=== PATIENT | female | born 1985 | race Caucasian/White ===

== ENCOUNTER 2023-08-28 08:00 | Outpatient (CLI) | payer OTHER | END 2023-08-28 23:59 | disposition home or self-care (01) | LOC: LAB.WCP 08:00 | PROVIDERS: ATTEND Physician Assistant Medical | DX: J02.9 Acute pharyngitis, unspecified (principal) | CPT/HCPCS: 87070; 87077 ==

== ENCOUNTER 2023-10-03 12:11 | Emergency (ER) | payer OTHER ==
--- NOTE | 2023-10-03 12:31 | ED Physician Documentation ---
PD HPI ABD PAIN - Stated complaint Stated Complaint: LT LOWER SIDE PX - Chief complaint Chief Complaint: Abd Pain - History obtained from History obtained from: Patient - History of Present Illness Timing - onset: How many hours ago (few), Today Timing - duration: Hours Timing - details: Abrupt onset, Still present Quality: Cramping, Aching, Pain Location: LLQ Radiation: Left flank Associated symptoms: Nausea, Vomiting, Dysuria. No: Fever, Diarrhea, Hematuria, Vaginal bleeding, Vaginal dc Similar symptoms before: Diagnosis (similar to prior kidney stones.) PD PAST MEDICAL HISTORY - Past Medical History Past Medical History: Yes Cardiovascular: Hypertension : Kidney stones Psych: Depression, Anxiety, Other Other Past Medical History: agorphobia - Past Surgical History Past Surgical History: Yes General: Appendectomy - Present Medications Home Medications: Ambulatory Orders Medication Instructions Recorded Confirmed HYDROcod/ACETAM 5/325 [[place] 5/325] 1 ea PO Q6H PRN #10 tablet 10/03/23 Meloxicam [Mobic] 7.5 mg PO BID 10 Days #20 tablet 10/03/23 Ondansetron Odt [Zofran] 4 mg TL Q6H PRN #10 tablet 10/03/23 Tamsulosin [Flomax] 0.4 mg PO DAILY #5 cap 10/03/23 - Allergies Allergies/Adverse Reactions: Allergies Allergy/AdvReac Type Severity Reaction Status Date / Time Sulfa (Sulfonamide Allergy Anaphylaxis Verified 10/03/23 12:58 Antibiotics) - Social History Does the pt smoke?: No Smoking Status: Never smoker Does the pt drink ETOH?: Yes Does the pt have substance abuse?: No - Immunizations Immunizations are current?: Yes PD ED PE NORMAL - Vitals Vital signs reviewed: Yes - General General: Alert and oriented X 3, Well developed/nourished, Other (appears in considerable pain left abd. ) - Abdomen Abdomen: Normal bowel sounds, Soft, Non distended, Other (some tender left lower abd but not to the degree of the pain she has. Also left CVA very tender in contrast. ) Results - Vitals Vitals: Vital Signs - 24 hr 10/03/23 10/03/23 10/03/23 12:19 14:23 15:49 Temperature 36.5 C Heart Rate 84 80 76 Respiratory 16 16 14 Rate Blood Pressure 162/115 H 133/74 H O2 Saturation 100 100 100 Oxygen O2 Source Room air - Labs Labs: Laboratory Tests 10/03/23 10/03/23 10/03/23 12:33 12:33 14:00 WBC 8.8 RBC 4.43 Hgb 12.9 Hct 40.1 MCV 90.5 MCH 29.1 MCHC 32.2 RDW 14.6 Plt Count 303 MPV 9.4 Neut # (Auto) 5.6 Lymph # (Auto) 2.2 [place] # (Auto) 0.7 Eos # (Auto) 0.2 Baso # (Auto) 0.1 Absolute Nucleated RBC 0.00 Nucleated RBC % 0.0 Sodium 135 Potassium 4.1 Chloride 102 Carbon Dioxide 24 Anion Gap 9.0 BUN 15 Creatinine 0.7 Estimated GFR (MDRD) 93 Glucose 85 Calcium 10.2 Total Bilirubin 0.3 AST 20 ALT 21 Alkaline Phosphatase 68 Total Protein 8.0 Albumin 4.4 Globulin 3.6 Albumin/Globulin Ratio 1.2 Lipase 45 Urine Color YELLOW Urine Clarity HAZY Urine pH 6.5 Ur Specific [place] 1.020 Urine Protein TRACE Urine Glucose (UA) NEGATIVE Urine Ketones NEGATIVE Urine Occult Blood LARGE H Urine Nitrite NEGATIVE Urine Bilirubin NEGATIVE Urine Urobilinogen 0.2 (NORMAL) Ur Leukocyte Esterase NEGATIVE Urine RBC TNTC H Urine WBC 0-3 Ur Squamous Epith Cells RARE Squamous Urine Bacteria Rare Ur Microscopic Review INDICATED Urine Culture Comments NOT INDICATED Urine HCG, Qual 10/03/23 14:00 WBC RBC Hgb Hct MCV MCH MCHC RDW Plt Count MPV Neut # (Auto) Lymph # (Auto) [place] # (Auto) Eos # (Auto) Baso # (Auto) Absolute Nucleated RBC Nucleated RBC % Sodium Potassium Chloride Carbon Dioxide Anion Gap BUN Creatinine Estimated GFR (MDRD) Glucose Calcium Total Bilirubin AST ALT Alkaline Phosphatase Total Protein Albumin Globulin Albumin/Globulin Ratio Lipase Urine Color Urine Clarity Urine pH Ur Specific [place] Urine Protein Urine Glucose (UA) Urine Ketones Urine Occult Blood Urine Nitrite Urine Bilirubin Urine Urobilinogen Ur Leukocyte Esterase Urine RBC Urine WBC Ur Squamous Epith Cells Urine Bacteria Ur Microscopic Review Urine Culture Comments Urine HCG, Qual NEGATIVE - Rads (name of study) abd/pelvic CT Relevant Findings:: Prelim report reviewed, EMP independent interpretation of test (large left ovarian cyst 9 cm. 3 cm right one. no ureteral stones. 6 mm kidney stone in pelvic area. no hydro. multiple small renal stones bilaterally. ) PD Medical Decision Making - ED course Complexity details: reviewed results (SHe had pain type and location very c/w kidney stone. Had felt improved with IV fluids and meds, and got CT scan. No noted ureteral stone. I brelierve she had a urteral stone and passed prior to the CT. Still renal stone that looks close to pelvic area of kidney, ? intervention on it pre-emptive.), considered differential (The patient had abrupt onset of left flank pain which is moved somewhat to the left front as well. The pain is unrelieved by ibuprofen and is unaffected by change in position breathing or palpation. She states similar to kidney stone she had had over 5 years ago. She has had to have stents prior), d/w patient Reviewed Lab Results: also with large cyst found on CT, not likely related to current pain episode as pain mostly gone and cyst still present. However it is a large one. I talked with Dr. Pathak, DIRECTOR [place] geriatric personal care aide, who said they can see pt in office and we did not need to do US today on it. Departure - Departure Disposition: 01 Home, Self Care Clinical Impression: Left flank pain, Ovarian cyst, Renal stones Condition: Stable Record reviewed to determine appropriate education?: Yes Follow-Up: Dori Pathak MD [Provider Admit Priv/Credential] - Shashank Keyes MD [Provider Admit Priv/Credential] - Prescriptions: Tamsulosin [Flomax] 0.4 mg PO DAILY #5 cap Meloxicam [Mobic] 7.5 mg PO BID 10 Days #20 tablet HYDROcod/ACETAM 5/325 [[place] 5/325] 1 ea PO Q6H PRN #10 tablet PRN Reason: Pain Ondansetron Odt [Zofran] 4 mg TL Q6H PRN #10 tablet PRN Reason: Nausea / Vomiting Comments: You do have blood in your urine which would go along with the idea of the sound like a kidney stone. Your CT scan did not show any stones passing in the ureter but I believe that was the cause of your pain and it likely passed prior to the CT scan after your gotten medication. The pain character and location certainly sound like kidney stone. On the CT scan, you do have a kidney stone in the left kidney that moderate- sized about 6 to 7 mm and looks near to the collection system or outlet flow of the urine. Is not blocking the passageway currently. I would suggest following up with urology though for an opinion on whether that would be worth preemptively doing any lithotripsy or such or given the smaller passable size to just let it be. I provided the phone number for urology to call for follow-up. Given that you presumably passed a stone, there is still can be some cramps and pains related to inflammation and spasming of the ureter over the next couple of days. Commonly will go with a anti-inflammatories, stay well-hydrated, and a medicine to reduce ureteral spasms for 2 or 3 more days just to preempt secondary symptoms of that. To that add pain medicine if needed. Also a finding on your CT scan was a large ovarian cyst on the left measuring 9 cm and a smaller one on the right measuring about 3 cm. I talked with our on- call gynecology who said we did need to get any further imaging per se today but they would follow-up in the office with you in the short-term to discuss options about it and any further testing. They can get an ultrasound outpatient if desired. I sent your prescriptions to your preferred pharmacy. Return if repeated pains or problems. Forms: PCP List Discharge Date/Time: 10/03/23 15:55
[2023-10-03 12:32] VITALS: O2SAT 100
[2023-10-03 12:39] LABS: BASOPHILS # (AUTO) 0.1 10^3/uL (0.0-0.1); BASOPHILS % (AUTO) 0.8 %; EOSINOPHILS # (AUTO) 0.2 10^3/uL (0.0-0.7); EOSINOPHILS % (AUTO) 1.9 %; HCT - HEMATOCRIT 40.1 % (37.0-47.0); HGB - HEMOGLOBIN 12.9 g/dL (12.0-16.0); LYMPHOCYTES # (AUTO) 2.2 10^3/uL (1.5-3.5); LYMPHOCYTES % (AUTO) 24.7 %; MEAN CORPUSCULAR HEMOGLOBIN 29.1 pg (27.0-31.0); MEAN CORPUSCULAR HGB CONC 32.2 g/dL (32.0-36.0); MEAN CORPUSCULAR VOLUME 90.5 fL (81.0-99.0); MEAN PLATELET VOLUME 9.4 fL (7.9-10.8); MONOCYTES # (AUTO) 0.7 10^3/uL (0.0-1.0); MONOCYTES % (AUTO) 8.3 %; NEUTROPHILS # (AUTO) 5.6 10^3/uL (1.5-6.6); NEUTROPHILS % (AUTO) 64.1 %; PLT - PLATELET COUNT 303 10^3/uL (130-450); RED BLOOD COUNT 4.43 10^6/uL (4.20-5.40); RED CELL DISTRIBUTION WIDTH 14.6 % (12.0-15.0); WHITE BLOOD COUNT 8.8 x10^3/uL (4.8-10.8)
[2023-10-03 12:54] LABS: ALBUMIN 4.4 g/dL (3.2-5.5); ALBUMIN/GLOBULIN RATIO 1.2 (1.0-2.2); BILIRUBIN,TOTAL 0.3 mg/dL (0.2-1.0); CALCIUM 10.2 mg/dL (8.5-10.3); CREATININE 0.7 mg/dL (0.6-1.3); POTASSIUM 4.1 mmol/L (3.5-4.5)
[2023-10-03] MEDS: SODIUM CHLORIDE 0.9% 1,000 ML IV STA (13:00)
[2023-10-03] MEDS: KETOROLAC 15 MG/ML VIAL IVP STA (13:00)
[2023-10-03] MEDS: ONDANSETRON 4 MG/2 ML VIAL IVP STA (13:00)
[2023-10-03] MEDS: HYDROmorphone 1 MG/ML CARPUJECT IVP STA ×2 (13:05→14:20)
[2023-10-03] MEDS ORDERED: iohexoL-300 100 ML VIAL ONE (13:12)
[2023-10-03] MEDS: ONDANSETRON ODT 4 MG TABLET TL STA (13:51)
--- NOTE | 2023-10-03 14:22 | CT Report ---
PROCEDURE: Abdomen/Pelvis W INDICATIONS: left flank to abd pain overnight; h/o stones CONTRAST: 100ml omni 300 TECHNIQUE: After the administration of intravenous contrast, a CT scan of the abdomen and pelvis was performed. Images were recorded and evaluated at appropriate window settings. Reformats: coronal and sagittal. F or radiation dose reduction, the following was used: automated exposure control, adjustment of mA and /or kV according to patient size. COMPARISON: None. FINDINGS: Image quality: Diagnostic. Lower chest: Unremarkable. Liver: No solid mass. Gallbladder: No radiopaque stones or wall thickening. Biliary tree: No intrahepatic or extrahepatic dilation, accounting for age. Spleen: No splenomegaly. Pancreas: No pancreatic ductal dilation. Adrenals: No adrenal nodule. Kidneys and ureters: No hydronephrosis. No renal cystic lesion which requires follow up. No solid mas s. 7 mm calculus at the interpolar region of the left kidney (775 Hounsfield units). Additional small er nonobstructing bilateral renal calculi. No hydronephrosis or hydroureter. Stomach, bowel and peritoneum: No gastric or small bowel dilation. No abnormal wall thickening. No pa thologic free fluid. Colon is nondistended. Lymph nodes: No central or retroperitoneal adenopathy. Vessels: No infrarenal aortic aneurysm. Patent portal vein. PELVIS Reproductive organs: Ovoid hypoattenuating lesion in the anterior central pelvis measuring 9.3 x 7.7 x 7.8 cm. This lesion obvious thoracic and the right adnexa, abutting the right ovary. There is a 3.6 cm left ovarian cyst.. Bladder: No abnormal wall thickening, accounting for underdistention. Pelvic lymph nodes: No pelvic adenopathy by size criteria. Bones: No aggressive osseous abnormality. Other: No significant ventral or inguinal hernia. IMPRESSION: 1.Bilateral nonobstructing renal calculi, including a 7 mm calculus in the left kidney. No hydronephr osis or hydroureter. No ureteral calculus identified. 2.Large 9.3 cm cystic lesion is seen in the midline lower abdomen that appears to be arising from the right adnexa. Recommend pelvic ultrasound for further evaluation. 3.Left ovarian 3.6 cm cyst. Reviewed by: Lester Ellington MD on 10/03/2023 2:21 PM PDT Approved by: Lester Ellington MD on 10/03/2023 2:21 PM PDT Station ID: [id number]
[2023-10-03] MEDS: iohexoL-300 100 ML VIAL IVP ONE (15:01)
[2023-10-03 15:28] LABS: BILIRUBIN,URINE NEGATIVE (NEGATIVE); GLUCOSE, URINE (UA) NEGATIVE (NEGATIVE); KETONES,URINE (UA) NEGATIVE (NEGATIVE); LEUKOCYTE ESTERASE, URINE NEGATIVE (NEGATIVE); NITRITE,URINE NEGATIVE (NEGATIVE); OCCULT BLOOD,URINE LARGE (NEGATIVE); PH,URINE 6.5 PH (5.0-7.5); PROTEIN,URINE TRACE mg/dL (NEGATIVE); UROBILINOGEN,URINE 0.2 (NORMAL) E.U./dL (NORMAL)
[2023-10-03 15:30] LABS: CLARITY,URINE HAZY (CLEAR); HCG UR QUAL NEGATIVE
[2023-10-03 15:39] LABS: BACTERIA,URINE Rare /HPF (None Seen); RBC,URINE TNTC /HPF (0-5); SQUAMOUS EPITHELIAL CELL,UR RARE Squamous (<= Few); WBC,URINE 0-3 /HPF (0-5)
[2023-10-03] MEDS: TAMSULOSIN 0.4 MG CAPSULE PO STA (15:40)
[2023-10-03 15:56] VITALS: BP 133/74
== END 2023-10-03 15:55 | disposition home or self-care (01) ==
LOC: ED 12:11
DX: N20.0 Calculus of kidney (principal); N83.202 Unspecified ovarian cyst, left side; Z32.02 Encounter for pregnancy test, result negative
CPT/HCPCS: 36415; 74177; 80053; 81001; 81025; 83690; 85025; 96361; 96374; 96375; 96376; 99284; A9270; J1170; Q0162; Q9967; 81003; 87086

== ENCOUNTER 2023-10-11 11:40 | Day surgery (SDC) | payer OTHER ==
[2023-10-11 12:29] LABS: BILIRUBIN,URINE NEGATIVE (NEGATIVE); GLUCOSE, URINE (UA) NEGATIVE (NEGATIVE); KETONES,URINE (UA) 15 mg/dL (NEGATIVE); LEUKOCYTE ESTERASE, URINE NEGATIVE (NEGATIVE); NITRITE,URINE NEGATIVE (NEGATIVE); OCCULT BLOOD,URINE MODERATE (NEGATIVE); PROTEIN,URINE TRACE mg/dL (NEGATIVE); UROBILINOGEN,URINE 0.2 (NORMAL) E.U./dL (NORMAL)
[2023-10-11 12:33] LABS: CLARITY,URINE CLEAR (CLEAR); HCG UR QUAL NEGATIVE
[2023-10-11 12:36] LABS: BACTERIA,URINE Few /HPF (None Seen); SQUAMOUS EPITHELIAL CELL,UR FEW Squamous (<= Few); WBC,URINE 0-3 /HPF (0-5)
--- NOTE | 2023-10-11 12:42 | ED Physician Documentation ---
History of Present Illness - Stated complaint Stated Complaint: LOWER BACK PX, - Chief complaint Chief Complaint: Abd Pain - History obtained from History obtained from: Patient - History of Present Illness Timing: Today Pain level max: 9 Pain level now: 9 - Additonal information Additional information: Patient is a 38-year-old female who presents to the emergency department complaint of left-sided flank pain. She states that she was seen here a week ago for "kidney stones". She states that her pain mostly went away, but started having sharp left-sided flank pain again yesterday, worsening into today. Took Vicodin without relief. She states that she has had to have a kidney stone removed in the past about 6 years ago. No fevers. No chills. States that there is a pink tinge to her urine. No vomiting. Denies any possibility of . Nothing makes it better or worse. Not having any pelvic pain or abdominal pain. Review of Systems Constitutional: denies: Fever, Chills Respiratory: denies: Cough : denies: Now [facility] PD PAST MEDICAL HISTORY - Past Medical History Past Medical History: Yes Cardiovascular: Hypertension : Kidney stones Psych: Depression, Anxiety, Other - Past Surgical History Past Surgical History: Yes General: Appendectomy - Present Medications Home Medications: Ambulatory Orders Medication Instructions Recorded Confirmed HYDROcod/ACETAM 5/325 [[place] 5/325] 1 ea PO Q6H PRN #10 tablet 10/03/23 Meloxicam [Mobic] 7.5 mg PO BID 10 Days #20 tablet 10/03/23 Ondansetron Odt [Zofran] 4 mg TL Q6H PRN #10 tablet 10/03/23 Tamsulosin [Flomax] 0.4 mg PO DAILY #5 cap 10/03/23 - Allergies Allergies/Adverse Reactions: Allergies Allergy/AdvReac Type Severity Reaction Status Date / Time Sulfa (Sulfonamide Allergy Anaphylaxis Verified 10/11/23 12:12 Antibiotics) - Social History Does the pt smoke?: No Smoking Status: Never smoker Does the pt drink ETOH?: Yes Does the pt have substance abuse?: No - Immunizations Immunizations are current?: Yes - POLST Patient has POLST: No PD ED PE NORMAL - Vitals Vital signs reviewed: Yes - General General: Alert and oriented X 3, Other (Appears in pain) - HEENT HEENT: PERRL, Moist mucous membranes - Neck Neck: Supple, no meningeal sign - Cardiac Cardiac: RRR, Strong equal pulses - Respiratory Respiratory: No respiratory distress, Clear bilaterally - Abdomen Abdomen: Soft, Non tender, Non distended - Back Back: No spinal TTP, Other (Left CVA tenderness) - Derm Derm: Warm and dry - Extremities Extremities: No edema, No calf tenderness / cord - Neuro Neuro: Alert and oriented X 3 - Psych Psych: Normal mood, Normal affect Results - Vitals Vitals: Vital Signs - 24 hr 10/11/23 10/11/23 10/11/23 12:13 13:36 14:00 Temperature 36.5 C Heart Rate 110 H 94 88 Respiratory 16 18 17 Rate Blood Pressure 150/89 H 194/92 H 133/88 H O2 Saturation 99 98 98 Oxygen O2 Source Room air - Labs Labs: Laboratory Tests 10/11/23 10/11/23 10/11/23 12:23 12:35 12:35 WBC 8.6 RBC 4.12 L Hgb 12.3 Hct 37.6 MCV 91.3 MCH 29.9 MCHC 32.7 RDW 14.4 Plt Count 279 MPV 9.6 Neut # (Auto) 5.7 Lymph # (Auto) 1.9 [place] # (Auto) 0.7 Eos # (Auto) 0.2 Baso # (Auto) 0.1 Absolute Nucleated RBC 0.00 Nucleated RBC % 0.0 Sodium 137 Potassium 3.7 Chloride 104 Carbon Dioxide 24 Anion Gap 9.0 BUN 17 Creatinine 0.6 Estimated GFR (MDRD) 111 Glucose 90 Calcium 9.4 Total Bilirubin 0.4 AST 22 ALT 20 Alkaline Phosphatase 66 Total Protein 7.7 Albumin 4.2 Globulin 3.5 Albumin/Globulin Ratio 1.2 Lipase 42 Urine Color YELLOW Urine Clarity CLEAR Urine pH 6.0 Ur Specific [place] 1.025 Urine Protein TRACE Urine Glucose (UA) NEGATIVE Urine Ketones 15 H Urine Occult Blood MODERATE H Urine Nitrite NEGATIVE Urine Bilirubin NEGATIVE Urine Urobilinogen 0.2 (NORMAL) Ur Leukocyte Esterase NEGATIVE Urine RBC 6-10 H Urine WBC 0-3 Ur Squamous Epith Cells FEW Squamous Urine Bacteria Few Ur Microscopic Review INDICATED Urine Culture Comments NOT INDICATED Urine HCG, Qual NEGATIVE - Rads (name of study) CT abdomen pelvis Relevant Findings:: Final report received, See rad report PD Medical Decision Making - ED course Complexity details: reviewed results, re-evaluated patient, considered differential, d/w patient ED course: 38-year-old female with a left 8 by 4 x 3 mm proximal left ureteral stone. Given Toradol, IV lidocaine, IV Dilaudid. Pain remains an 8-9 out of 10. Therefore I spoke with urology, Dr. Keyes, he will take the patient to the OR for stent placement. This document was made in part using voice recognition software. While efforts are made to proofread this document, sound alike and grammatical errors may occur. Departure - Departure Disposition: ED Place in Observation Clinical Impression: Ureteral calculus, left Condition: Stable Forms: PCP List
[2023-10-11 12:45] LABS: BASOPHILS # (AUTO) 0.1 10^3/uL (0.0-0.1); EOSINOPHILS # (AUTO) 0.2 10^3/uL (0.0-0.7); EOSINOPHILS % (AUTO) 2.7 %; HCT - HEMATOCRIT 37.6 % (37.0-47.0); HGB - HEMOGLOBIN 12.3 g/dL (12.0-16.0); LYMPHOCYTES # (AUTO) 1.9 10^3/uL (1.5-3.5); LYMPHOCYTES % (AUTO) 21.5 %; MEAN CORPUSCULAR HEMOGLOBIN 29.9 pg (27.0-31.0); MEAN CORPUSCULAR HGB CONC 32.7 g/dL (32.0-36.0); MEAN CORPUSCULAR VOLUME 91.3 fL (81.0-99.0); MEAN PLATELET VOLUME 9.6 fL (7.9-10.8); MONOCYTES # (AUTO) 0.7 10^3/uL (0.0-1.0); MONOCYTES % (AUTO) 8.1 %; NEUTROPHILS # (AUTO) 5.7 10^3/uL (1.5-6.6); NEUTROPHILS % (AUTO) 66.5 %; PLT - PLATELET COUNT 279 10^3/uL (130-450); RED BLOOD COUNT 4.12 10^6/uL (4.20-5.40); RED CELL DISTRIBUTION WIDTH 14.4 % (12.0-15.0); WHITE BLOOD COUNT 8.6 x10^3/uL (4.8-10.8)
[2023-10-11] MEDS ORDERED: LIDOCAINE-MPF 2% 5 ML VIAL ONE (12:51)
[2023-10-11] MEDS: KETOROLAC 30 MG/ML VIAL IVP STA (12:58)
[2023-10-11] MEDS: LIDOCAINE-MPF 2% 7 ML in SODIUM CHLORIDE 0.9% 50 ML IV STA (13:06)
[2023-10-11 13:07] LABS: ALBUMIN 4.2 g/dL (3.2-5.5); ALBUMIN/GLOBULIN RATIO 1.2 (1.0-2.2); BILIRUBIN,TOTAL 0.4 mg/dL (0.2-1.0); CALCIUM 9.4 mg/dL (8.5-10.3); CREATININE 0.6 mg/dL (0.6-1.3); POTASSIUM 3.7 mmol/L (3.5-4.5); TOTAL PROTEIN 7.7 g/dL (6.4-8.9)
[2023-10-11] MEDS: ONDANSETRON 4 MG/2 ML VIAL IVP STA (13:21)
[2023-10-11] MEDS: HYDROmorphone 1 MG/ML CARPUJECT IVP STA ×2 (13:33→15:12)
--- NOTE | 2023-10-11 14:05 | CT Report ---
PROCEDURE: Abdomen/Pelvis WO INDICATIONS: L flank pain, h/o renal stones TECHNIQUE: A CT scan of the abdomen and pelvis was performed without the use of intravenous contrast. Images we re recorded and evaluated at appropriate window settings. Reformats: coronal and sagittal. For radiat ion dose reduction, the following was used: automated exposure control, adjustment of mA and/or kV ac cording to patient size. COMPARISON: CT abdomen and pelvis with contrast dated 02/03/2024. FINDINGS: Image quality: Diagnostic. Lower chest: Unremarkable. Liver: No contour-deforming mass. Gallbladder: No radiopaque stones or wall thickening. Biliary tree: No intrahepatic or extrahepatic dilation, accounting for age. Spleen: No splenomegaly. Pancreas: No pancreatic ductal dilation. Adrenals: No adrenal nodule. Right Kidney: Subtle pancreatic calcifications and tiny stones are consistent with renal tubular acid osis. No hydronephrosis. Right Ureter: Unremarkable Left Kidney: Mild to moderate hydronephrosis. A previous pelvic stone has migrated down into the prox imal ureter. There are subtle paintbrush calcifications and there is a tiny stone. Findings are consi stent with renal tubular acidosis. Left Ureter: There is an 8 x 3 x 4 mm stone in the proximal left ureter at the level of L3-L4 which o bstructs the left ureter and results in mild to moderate left hydronephrosis. This stone was previous ly in the renal pelvis. Stomach, bowel and peritoneum: No gastric or small bowel dilation. No abnormal wall thickening. No pa thologic free fluid. Lymph nodes: No central or retroperitoneal adenopathy. Vessels: No infrarenal aortic aneurysm. Reproductive organs: Again noted is a 9.2 cm cystic lesion of the right adnexa as well as a 3.7 cm le jonathan of the left adnexa. Bladder: Bladder wall thickness is normal, accounting for underdistention. No calcified bladder stone s. Pelvic lymph nodes: No adenopathy by size criteria. Bones: No aggressive osseous abnormality. Other: No significant ventral or inguinal hernia. IMPRESSION: 1. Findings are consistent with renal tubular acidosis. There are bilateral pain brush calcifications and tiny stones. 2. A stone previously present in the left renal pelvis has migrated to the proximal ureter. It measur es 8 x 3 x 4 mm and results in mild to moderate left hydronephrosis. 3. 9.3 cm cystic lesion of the right adnexa. Also present is a 3.7 cm left adnexal cystic lesion. Recommend nonemergent [facility] MEDICINE SPECIALIST consultation for management of the right ovarian cystic lesion Reviewed by: Surinder Polo MD on 10/11/2023 2:04 PM PDT Approved by: Surinder Polo MD on 10/11/2023 2:04 PM PDT Station ID: [id number]
--- NOTE | 2023-10-11 14:56 | CONSULTATION NOTE ---
Referring Provider Name of Referring Provider:: Dr Lynn Consult Date: 10/11/23 Chief Complaint - Chief Complaint Chief Complaint: Left ureteral stone History of Present Illness - Admitted From Admitted From:: ER - History Obtained From Records Reviewed: ER History obtained from: patient Exam Limitations: none - History of Present Illness HPI Comment/Other: Isela is a pleasant 38-year-old woman with history of kidney stones requiring intervention in the past. She had ureteral stones during and had to be monitored conservatively. She comes today with intractable nausea vomiting left flank pain which is resistant to multiple rounds of narcotic pain medications. She was found to have a 5 mm proximal left ureteral stone with ipsilateral hydroureteronephrosis. She is mildly uncomfortable and asking for pain medications. Her white count is normal her creatinine is normal. She has no fever she has normal vitals. History - Past Medical History Cardiovascular: reports: Hypertension : reports: Kidney stones Psych: reports: Depression, Anxiety, Other MRSA Hx?: No - Past Surgical History General: reports: Appendectomy - POLST Patient has POLST: No Meds/Allgy - Home Medications Home Medications: Ambulatory Orders Medication Instructions Recorded Confirmed HYDROcod/ACETAM 5/325 [[place] 5/325] 1 ea PO Q6H PRN #10 tablet 10/03/23 Meloxicam [Mobic] 7.5 mg PO BID 10 Days #20 tablet 10/03/23 Ondansetron Odt [Zofran] 4 mg TL Q6H PRN #10 tablet 10/03/23 Tamsulosin [Flomax] 0.4 mg PO DAILY #5 cap 10/03/23 - Allergies Allergies/Adverse Reactions: Allergies Allergy/AdvReac Type Severity Reaction Status Date / Time Sulfa (Sulfonamide Allergy Anaphylaxis Verified 10/11/23 12:12 Antibiotics) Exam - Vital Signs Vital Signs: Vital Signs x48h Temp Pulse Resp BP Pulse Ox 10/11/23 14:00 88 17 133/88 H 98 10/11/23 13:36 94 18 194/92 H 98 10/11/23 12:13 36.5 C 110 H 16 150/89 H 99 - Physical Exam General Appearance: positive: No acute distress Respiratory: positive: Breath sounds nml Cardiovascular: positive: Regular rate & rhythm Conclusion and Plan - Lab Results Laboratory Results 10/11/23 12:35: Sodium 137, Potassium 3.7, Chloride 104, Carbon Dioxide 24, Anion Gap 9.0, BUN 17, Creatinine 0.6, Estimated GFR (MDRD) 111, Glucose 90, Calcium 9.4, Total Bilirubin 0.4, AST 22, ALT 20, Alkaline Phosphatase 66, Total Protein 7.7, Albumin 4.2, Globulin 3.5, Albumin/Globulin Ratio 1.2, Lipase 42 10/11/23 12:35: WBC 8.6, RBC 4.12 L, Hgb 12.3, Hct 37.6, MCV 91.3, MCH 29.9, MCHC 32.7, RDW 14.4, Plt Count 279, MPV 9.6, Neut # (Auto) 5.7, Lymph # (Auto) 1.9, [place] # (Auto) 0.7, Eos # (Auto) 0.2, Baso # (Auto) 0.1, Absolute Nucleated RBC 0.00, Nucleated RBC % 0.0 10/11/23 12:23: Urine Color YELLOW, Urine Clarity CLEAR, Urine pH 6.0, Ur Specific [place] 1.025, Urine Protein TRACE, Urine Glucose (UA) NEGATIVE, Urine Ketones 15 H, Urine Occult Blood MODERATE H, Urine Nitrite NEGATIVE, Urine Bilirubin NEGATIVE, Urine Urobilinogen 0.2 (NORMAL), Ur Leukocyte Esterase NEGATIVE, Urine RBC 6-10 H, Urine WBC 0-3, Ur Squamous Epith Cells FEW Squamous, Urine Bacteria Few, Ur Microscopic Review INDICATED, Urine Culture Comments NOT INDICATED, Urine HCG, Qual NEGATIVE - Diagnostic Imaging Results Diagnostic Imaging Results: positive: Read independently - Diagnosis Diagnosis: left ureteral stone. intractable pain - Consultation Note Consultation Note: 38-year-old woman with obesity and left ureteral stone with intractable pain - Plan Plan: N.p.o. for now. Her last protein shake was 4 hours ago. We will perform this procedure at 4:45 PM roughly. I recommend a cystoscopy, left ureteral stent placement. The risk, benefits, terms discussed with the patient. The need for future stone management was discussed. After long discussion the patient states understanding consents the above plan. She will go home after this procedure.
[2023-10-11] MEDS: SODIUM CHLORIDE 0.9% 1,000 ML IV STA (15:10)
[2023-10-11] MEDS ORDERED: iohexoL-240 10 ML VIAL IVP ONE (15:23)
[2023-10-11] MEDS ORDERED: LIDOCAINE 2% URO-JET 5 ML SYRINGE UR ONE (15:24)
[2023-10-11] MEDS ORDERED: fentaNYL 100 MCG/2 ML VIAL ONE (15:54)
[2023-10-11] MEDS ORDERED: SUCCINYLCHOLINE 200 MG/10 ML VIAL ONE (15:54)
[2023-10-11] MEDS ORDERED: MIDAZOLAM 2 MG/2 ML VIAL ONE (15:54)
[2023-10-11] MEDS ORDERED: PROPOFOL 200 MG/20 ML VIAL IVP ONE (15:54)
[2023-10-11] MEDS ORDERED: DEXMEDETOMIDINE 200 MCG/2 ML VIAL ONE (16:02)
[2023-10-11] MEDS ORDERED: SODIUM CHLORIDE 0.9% 10 ML VIAL IVP ONE (16:02)
--- NOTE | 2023-10-11 16:14 | ANESTHESIA ---
Pre-Anesthesia VS, & Labs - Diagnosis Diagnosis left ureteral stone intractable pain - Procedure cystoscopy, left stent placement Vital Signs: Temp Pulse Resp BP Pulse Ox O2 Flow Rate 36.5 C 83 19 143/89 H 98 10/11/23 12:13 10/11/23 15:26 10/11/23 15:26 10/11/23 15:26 10/11/23 15:26 Height: 5 ft 4 in Weight (kg): 92.986 kg Body Mass Index: 35.2 BMI Classification: Obese - NPO Last Food Intake: protein shake at 0945 - Is Patient ?: No - Lab Results Current Lab Results: Laboratory Tests 10/11/23 12:35: Sodium 137, Potassium 3.7, Chloride 104, Carbon Dioxide 24, Anion Gap 9.0, BUN 17, Creatinine 0.6, Estimated GFR (MDRD) 111, Glucose 90, Calcium 9.4, Total Bilirubin 0.4, AST 22, ALT 20, Alkaline Phosphatase 66, Total Protein 7.7, Albumin 4.2, Globulin 3.5, Albumin/Globulin Ratio 1.2, Lipase 42 10/11/23 12:35: WBC 8.6, RBC 4.12 L, Hgb 12.3, Hct 37.6, MCV 91.3, MCH 29.9, MCHC 32.7, RDW 14.4, Plt Count 279, MPV 9.6, Neut # (Auto) 5.7, Lymph # (Auto) 1.9, [place] # (Auto) 0.7, Eos # (Auto) 0.2, Baso # (Auto) 0.1, Absolute Nucleated RBC 0.00, Nucleated RBC % 0.0 Lab results reviewed: Yes Fish Bones: 10/11/23 12:35 10/11/23 12:35 Home Medications and Allergies Active Medications Sodium Chloride (Normal Saline 0.9%) 1,000 mls @ 150 mls/hr IV .Q6H40M STA Stop: 10/11/23 21:16 Last Admin: 10/11/23 15:10 Dose: 150 mls/hr Home meds: losartan, synthroid, klonopin, sertraline, wegovy (last dose 8 days ago) prazosin Allergies/Adverse Reactions: Allergies Allergy/AdvReac Type Severity Reaction Status Date / Time Sulfa (Sulfonamide Allergy Anaphylaxis Verified 10/11/23 12:12 Antibiotics) Anes History & Medical History - Anesthetic History Anesthesia Complications: reports: No previous complications - Medical History Cardiovascular: reports: Hypertension Pulmonary: reports: Sleep apnea (uses cpap every night) Gastrointestinal: reports: None Urinary: reports: Kidney stones Neuro: reports: None Musculoskeletal: reports: None Endocrine/Autoimmune: reports: HyPOthyroidism Blood Disorders: reports: None Skin: reports: None Smoking Status: Never smoker Psychosocial: reports: Depression, Anxiety, Other (PTSD) History of Cancer?: No - Surgical History General: reports: Appendectomy Urologic: reports: Ureterolithotomy (stones) Exam General: Alert, Oriented x3, Cooperative, No acute distress Dental: WNL Mouth Openin Fingerbreadth Neck Mobility: Normal Mallampati classification: III Thyromental Distance: 4-6 cm Mental/Cognitive Status: Alert/Oriented X3, Normal for patient Plan Anesthesia Type: General (RSI) Consent for Procedure(s) Verified and Reviewed: Yes Code Status: Attempt Resuscitation ASA classification: 2-Mild systemic disease Is this case an emergency?: Yes
[2023-10-11] MEDS ORDERED: ONDANSETRON 4 MG/2 ML VIAL IVP PRN ×2 (16:15→16:43)
[2023-10-11] MEDS ORDERED: ATROPINE ABBOJECT 1 MG/10 ML SYRINGE IVP PRN (16:15)
[2023-10-11] MEDS ORDERED: HYDROmorphone 0.5 MG/0.5 ML SYRINGE IVP PRN (16:15)
[2023-10-11] MEDS ORDERED: NALOXONE 0.4 MG/ML VIAL IVP PRN (16:15)
[2023-10-11] MEDS ORDERED: MORPHINE 2 MG/ML CARPUJECT IVP PRN (16:15)
[2023-10-11] MEDS ORDERED: fentaNYL 100 MCG/2 ML VIAL IVP PRN (16:15)
[2023-10-11] MEDS ORDERED: ceFAZolin 2 GM VIAL ONE (16:33)
--- NOTE | 2023-10-11 16:46 | Discharge Plan ---
Discharge Plan Problem Reviewed?: Yes Disposition: Home, Self Care Condition: Stable Diet: Regular Activity Restrictions: No Restrictions Shower Restrictions: No Driving Restrictions: No Instruction Topics: Stents Ureteral Additional Instructions or Follow Up instructions: You will be contacted for follow-up with Dr. Keyes and definitive stone management No Smoking: If you smoke, Please STOP! Call for help. Follow-up with: Shashank Keyes MD [Provider Admit Priv/Credential] -
[2023-10-11] MEDS: LIDOCAINE 2% URO-JET 5 ML SYRINGE UR ONE (16:50)
--- NOTE | 2023-10-11 16:51 | PHARMACY PROGRESS NOTE ---
- Best Possible Medication History Admit Date and Time: Processed by: Pharmacy Medications reviewed in ED?: Yes Medication History completed: Yes Patient Interview: Completed Secondary Source(s): Insurance records (Medication Reconciliation completed by Family Practice Nurse Practitioner, Racheal) As the person ultimately responsible for medication therapy, providers are able to order a medication from an existing home medication list in [facility] via the "Reconcile Routine" prior to Confirmation of that medication by care support representative. Such practice is discouraged except when the physician, in their clinical judgment, deems that a medical need exists for a medication without regard to previous use.
[2023-10-11] MEDS ORDERED: DEXAMETHASONE 4 MG/ML VIAL ONE (16:54)
[2023-10-11] MEDS ORDERED: LACTATED RINGERS 1,000 ML IV SCH (17:00)
--- NOTE | 2023-10-11 17:04 | OPERATIVE REPORT ---
Operative Report - General Procedure Date: 10/11/23 Planned Procedure: Cystoscopy, left ureteral stent Pre-Op Diagnosis: left ureteral stone Procedure Performed: Cystoscopy, left ureteral stent Post Op Diagnosis: left ureteral stone - Procedure Note Primary Surgeon: Wali Anesthesia Provider: KARSON Seymour Anesthesia Technique: General ET tube Pathology: none Complications: none - Other Other Information/Narrative: After informed consent was obtained the patient was brought to the OR and laid in the supine position. The patient was anesthetized per anesthesia protocols and prepped draped in usual sterile fashion. She was placed dorsolithotomy position. A formal timeout was performed confirming the patient, procedure and laterality. A 22 Turkmen cystoscope was advanced easily into urinary bladder. Bladder inspected and full and there were no masses lesions or other concerns. A sensor wire was placed up the left ureter to the kidney. We could see a radiopacity which appeared to be the stone in the proximal ureter. The wire would not pass this easily. A 6 Turkmen 24 cm stent was placed with good curling on the kidney and good curling noted in the bladder. There was an E flux of clear fluid from her stent. Her bladder was emptied and Uro-Jet was placed. This concluded the procedure and the patient tolerated the procedure well. She was brought to PACU without further incident. She will follow-up in several weeks time for definitive ureteroscopy and laser lithotripsy
[2023-10-11] MEDS: LACTATED RINGERS 1,000 ML IV ONE (17:10)
--- NOTE | 2023-10-11 17:29 | ANESTHESIA POST OP EVALUATION ---
Anesthesia Post Eval - Post Anesthesia Eval Vitals: Last Vital Signs Temp 36.1 C L 10/11/23 17:24 Pulse 77 10/11/23 17:24 Resp 12 10/11/23 17:24 BP 99/71 10/11/23 17:24 Pulse Ox 98 10/11/23 17:24 O2 Flow Rate CV Function Including HR & BP: Stable Pain Control: Satisfactory Nausea & Vomiting: Negative Mental Status: Baseline Respiratory Status: Airway Patent Hydration Status: Satisfactory Anesthesia Complications: None
[2023-10-11] MEDS: HYDROcod/ACETAM 5/325 MG TABLET PO PRN (17:52)
[2023-10-11] MEDS: LORazepam 2 MG/ML VIAL IVP PRN (17:52)
[2023-10-11] MEDS: PHENAZOPYRIDINE 100 MG TABLET PO ONE (19:08)
[2023-10-11] MEDS: SOLIFENACIN SUCCINATE 5 MG TABLET PO ONE (19:08)
[2023-10-11 19:24] VITALS: BP 118/72; O2SAT 98
--- NOTE | 2023-10-12 18:32 | XRAY Report ---
PROCEDURE: OR C-Arm Procedure INDICATIONS: URETERAL STENT PLACEMENT FLUORO TIME: 0.01 MIN TECHNIQUE: Single intraoperative fluoroscopic image of left abdomen was obtained. COMPARISON: CT of abdomen and pelvis dated 10/11/2023. FINDINGS: Intraoperative fluoroscopic image shows left-sided ureteral stent in place. IMPRESSION: Fluoroscopy guidance was provided intraoperatively for left-sided ureteral stent placement. Reviewed by: Santos Grey MD on 10/12/2023 6:31 PM PDT Approved by: Santos Grey MD on 10/12/2023 6:31 PM PDT Station ID: [id number]
== END 2023-10-11 19:34 | disposition home or self-care (01) ==
LOC: ED 11:40 → SDS 15:55 → MS2 18:29 → SDS 19:34
PROVIDERS: ATTEND Urology
DX: N13.2 Hydronephrosis with renal and ureteral calculous obstruction (principal); E66.9 Obesity, unspecified; Z68.35 Body mass index [BMI] 35.0-35.9, adult; G47.30 Sleep apnea, unspecified; I10 Essential (primary) hypertension
CPT/HCPCS: 36415; 52332; 74176; 80053; 81001; 81025; 83690; 85025; 96374; 96375; 96376; 99284; 99285; A9270; C2617; J0330; J1170; J2060; J7040; J7120; 81003; 87086; Q9966

== ENCOUNTER 2023-10-13 16:12 | Observation (INO) | payer OTHER ==
--- NOTE | 2023-10-13 16:35 | ED Physician Documentation ---
History of Present Illness - Stated complaint Stated Complaint: POST OP PX - Chief complaint Chief Complaint: General - History obtained from History obtained from: Patient - Additonal information Additional information: She came in on Wednesday, had persistent pain from a left ureteral stone measuring 8 x 3 x 4 mm. She subsequently went to the OR same day, 2 days [address] for this. Dr. Keyes had difficulty placing the wire past the stone and ended up having a stent placement for pain control with plan for subsequent liter definitive treatment of the stone. She has had severe left sided pain that is unresponsive to oxycodone. She also had significant gross hematuria with small amount of clots. PD PAST MEDICAL HISTORY - Past Medical History Cardiovascular: Hypertension Respiratory: Sleep apnea Neuro: None Endocrine/Autoimmune: HyPOthyroidism GI: None : Kidney stones Psych: Depression, Anxiety, Other Musculoskeletal: None Derm: None - Past Surgical History Past Surgical History: Yes General: Appendectomy - Present Medications Home Medications: Ambulatory Orders Medication Instructions Recorded Confirmed Meloxicam [Mobic] 7.5 mg PO BID 10 Days #20 tablet 10/03/23 10/13/23 Ondansetron Odt [Zofran] 4 mg TL Q6H PRN #10 tablet 10/03/23 10/13/23 Tamsulosin [Flomax] 0.4 mg PO DAILY #5 cap 10/03/23 10/13/23 Levothyroxine Sodium [Synthroid] 50 mcg PO DAILY 10/11/23 10/13/23 Losartan Potassium [Cozaar] 100 mg PO DAILY 10/11/23 10/13/23 Prazosin [Minipress] 1 mg PO BID 10/11/23 10/13/23 Semaglutide [Wegovy] 2.4 mg SQ UD 10/11/23 10/13/23 Sertraline HCl 200 mg PO DAILY 10/11/23 10/13/23 Zolpidem Tartrate [Ambien] 10 mg PO HS PRN 10/11/23 10/13/23 buPROPion HCL [Bupropion Xl] 300 mg PO DAILY 10/11/23 10/13/23 clonazePAM [Klonopin] 1 mg PO BID 10/11/23 10/13/23 oxyCODONE [Roxicodone] 5 mg PO Q4-6H 10/13/23 10/13/23 - Allergies Allergies/Adverse Reactions: Allergies Allergy/AdvReac Type Severity Reaction Status Date / Time Sulfa (Sulfonamide Allergy Anaphylaxis Verified 10/13/23 16:30 Antibiotics) - Social History Does the pt smoke?: No Smoking Status: Never smoker Does the pt drink ETOH?: Yes Does the pt have substance abuse?: No - Immunizations Immunizations are current?: Yes - POLST Patient has POLST: No PD ED PE NORMAL - Vitals Vital signs reviewed: Yes - General General: Alert and oriented X 3, Other (uncomfortable) - Abdomen Abdomen: Normal bowel sounds, Soft, Non tender - Back Back: No CVA TTP - Neuro Neuro: Alert and oriented X 3 Results - Vitals Vitals: Vital Signs - 24 hr 10/13/23 16:25 Temperature 37.2 C Heart Rate 87 Respiratory 20 Rate Blood Pressure 153/102 H O2 Saturation 98 Oxygen O2 Source Room air - Labs Labs: Laboratory Tests 10/13/23 10/13/23 10/13/23 16:44 16:48 16:48 WBC 10.4 RBC 4.22 Hgb 12.4 Hct 39.1 MCV 92.7 MCH 29.4 MCHC 31.7 L RDW 14.5 Plt Count 301 MPV 9.7 Neut # (Auto) 7.4 H Lymph # (Auto) 2.0 [place] # (Auto) 0.6 Eos # (Auto) 0.3 Baso # (Auto) 0.1 Absolute Nucleated RBC 0.00 Nucleated RBC % 0.0 Sodium 139 Potassium 3.6 Chloride 103 Carbon Dioxide 29 Anion Gap 7.0 BUN 17 Creatinine 0.8 Estimated GFR (MDRD) 79 L Glucose 92 Calcium 10.4 H Total Bilirubin 0.4 AST 23 ALT 19 Alkaline Phosphatase 66 Total Protein 7.7 Albumin 4.2 Globulin 3.5 Albumin/Globulin Ratio 1.2 Urine Color RED/BLOODY Urine Clarity TURBID Urine pH 7.0 Ur Specific [place] 1.025 Urine Protein 100 H Urine Glucose (UA) NEGATIVE Urine Ketones NEGATIVE Urine Occult Blood LARGE H Urine Nitrite NEGATIVE Urine Bilirubin NEGATIVE Urine Urobilinogen 0.2 (NORMAL) Ur Leukocyte Esterase MODERATE H Urine RBC TNTC H Urine WBC 0-3 Ur Squamous Epith Cells RARE Squamous Urine Bacteria None Seen Ur Microscopic Review INDICATED Urine Culture Comments INDICATED - Rads (name of study) Abdominal x-ray demonstrating left-sided ureteral stent in place Relevant Findings:: Final report received, EMP independent interpretation of test PD Medical Decision Making - ED course ED course: Labs are notable for an unremarkable CBC, CMP, and urinalysis showing blood. 38-year-old woman with recent kidney stone now with stent in place presents with significant pain. After initial evaluation I did contact urology, Dr. Keyes who recommended pain control including oxybutynin and Pyridium. Note that we do not have oxybutynin at house. She also received some Dilaudid, Toradol, and Zofran. He did recommend a KUB x-ray which was done showing appropriate stent placement. Subsequently on recheck at 5:20 PM pain was now down from a 10 to a 9.5 suggesting a yefri course as far as pain goes and I contacted Dr. Keyes again who will place her in observation Departure - Departure Disposition: ED Place in Observation Clinical Impression: Ureteral calculus, left Condition: Serious Forms: PCP List
[2023-10-13] MEDS: PHENAZOPYRIDINE 100 MG TABLET PO STA (16:48)
[2023-10-13] MEDS: SODIUM CHLORIDE 0.9% 1,000 ML IV STA (16:49)
[2023-10-13] MEDS: KETOROLAC 15 MG/ML VIAL IVP STA (16:49)
[2023-10-13] MEDS: HYDROmorphone 1 MG/ML CARPUJECT IVP STA ×2 (16:49→17:28)
[2023-10-13 16:52] LABS: BASOPHILS # (AUTO) 0.1 10^3/uL (0.0-0.1); BASOPHILS % (AUTO) 0.8 %; EOSINOPHILS # (AUTO) 0.3 10^3/uL (0.0-0.7); EOSINOPHILS % (AUTO) 2.4 %; HCT - HEMATOCRIT 39.1 % (37.0-47.0); HGB - HEMOGLOBIN 12.4 g/dL (12.0-16.0); LYMPHOCYTES % (AUTO) 18.8 %; MEAN CORPUSCULAR HEMOGLOBIN 29.4 pg (27.0-31.0); MEAN CORPUSCULAR HGB CONC 31.7 g/dL (32.0-36.0); MEAN CORPUSCULAR VOLUME 92.7 fL (81.0-99.0); MEAN PLATELET VOLUME 9.7 fL (7.9-10.8); MONOCYTES # (AUTO) 0.6 10^3/uL (0.0-1.0); NEUTROPHILS # (AUTO) 7.4 10^3/uL (1.5-6.6); NEUTROPHILS % (AUTO) 71.7 %; PLT - PLATELET COUNT 301 10^3/uL (130-450); RED BLOOD COUNT 4.22 10^6/uL (4.20-5.40); RED CELL DISTRIBUTION WIDTH 14.5 % (12.0-15.0); WHITE BLOOD COUNT 10.4 x10^3/uL (4.8-10.8)
[2023-10-13 16:55] LABS: BILIRUBIN,URINE NEGATIVE (NEGATIVE); GLUCOSE, URINE (UA) NEGATIVE (NEGATIVE); KETONES,URINE (UA) NEGATIVE (NEGATIVE); LEUKOCYTE ESTERASE, URINE MODERATE (NEGATIVE); NITRITE,URINE NEGATIVE (NEGATIVE); OCCULT BLOOD,URINE LARGE (NEGATIVE); PROTEIN,URINE 100 mg/dL (NEGATIVE); UROBILINOGEN,URINE 0.2 (NORMAL) E.U./dL (NORMAL)
[2023-10-13 16:58] LABS: BACTERIA,URINE None Seen /HPF (None Seen); CLARITY,URINE TURBID (CLEAR); RBC,URINE TNTC /HPF (0-5); SQUAMOUS EPITHELIAL CELL,UR RARE Squamous (<= Few); WBC,URINE 0-3 /HPF (0-5)
[2023-10-13] MEDS: ONDANSETRON 4 MG/2 ML VIAL IVP STA (17:05)
--- NOTE | 2023-10-13 17:09 | XRAY Report ---
PROCEDURE: Abdomen 1 V INDICATIONS: flank pain, eval L stent TECHNIQUE: 3 views of the abdomen acquired. COMPARISON: CT of abdomen and pelvis dated 10/11/2023. FINDINGS: Surgical changes and devices: Left-sided ureteral stent is seen. Bowel: Bowel gas pattern is normal. Soft tissues: No suspicious abdominal calcifications. Visualized solid organ contours appear normal in size. Bones: No suspicious bony lesions. IMPRESSION: Left-sided ureteral stent in place. No abdominal calcifications are seen. No gross free air. Reviewed by: Santos Grey MD on 10/13/2023 5:07 PM PDT Approved by: Santos Grey MD on 10/13/2023 5:07 PM PDT Station ID: [id number]
[2023-10-13 17:10] LABS: ALBUMIN 4.2 g/dL (3.2-5.5); ALBUMIN/GLOBULIN RATIO 1.2 (1.0-2.2); BILIRUBIN,TOTAL 0.4 mg/dL (0.2-1.0); CALCIUM 10.4 mg/dL (8.5-10.3); CREATININE 0.8 mg/dL (0.6-1.3); POTASSIUM 3.6 mmol/L (3.5-4.5); TOTAL PROTEIN 7.7 g/dL (6.4-8.9)
[2023-10-13] MEDS: SODIUM CHLORIDE 0.9% 1,000 ML IV SCH (18:25)
--- NOTE | 2023-10-13 18:25 | PHARMACY PROGRESS NOTE ---
- Best Possible Medication History Admit Date and Time: 10/13/23 173 Processed by: Pharmacy Medications reviewed in ED?: No Medication History completed: Yes Patient Interview: Completed Secondary Source(s): Insurance records (Medication Reconciliation completed by [employer] Director[employer]ma.) As the person ultimately responsible for medication therapy, providers are able to order a medication from an existing home medication list in [facility] via the "Reconcile Routine" prior to Confirmation of that medication by account support specialist. Such practice is discouraged except when the physician, in their clinical judgment, deems that a medical need exists for a medication without regard to previous use.
[2023-10-13] MEDS: ONDANSETRON ODT 4 MG TABLET TL PRN (19:01)
--- NOTE | 2023-10-13 20:24 | CONSULTATION NOTE ---
Referring Provider Name of Referring Provider:: Dr Mora Consult Date: 10/13/23 Chief Complaint - Chief Complaint Chief Complaint: left flank pain History of Present Illness - Admitted From Admitted From:: ER - History Obtained From Records Reviewed: ER History obtained from: pt Exam Limitations: none - History of Present Illness HPI Comment/Other: 38-year-old woman with history of kidney stones requiring intervention in the past. She had ureteral stones during and had to be monitored conservatively. She presented to the hospital with a 5 mm left-sided proximal ureteral stone on October 10. Left ureteral stent was placed. She comes t linda with worsening pain and hematuria. Despite IV narcotics and appropriate pain medications in the ER she continued to have pain and so has been admitted. On examination she looks completely perfectly comfortable with 2 family members at bedside. Her vitals are stable. History - Past Medical History Cardiovascular: reports: Hypertension Respiratory: reports: Sleep apnea Neuro: reports: None Endocrine/Autoimmune: reports: HyPOthyroidism GI: reports: None : reports: Kidney stones Psych: reports: Depression, Anxiety, Other Musculoskeletal: reports: None Derm: reports: None MRSA Hx?: No - Past Surgical History General: reports: Appendectomy - POLST Patient has POLST: No Meds/Allgy - Home Medications Home Medications: Ambulatory Orders Medication Instructions Recorded Confirmed Meloxicam [Mobic] 7.5 mg PO BID 10 Days #20 tablet 10/03/23 10/13/23 Levothyroxine Sodium [Synthroid] 50 mcg PO DAILY 10/11/23 10/13/23 Losartan Potassium [Cozaar] 100 mg PO DAILY 10/11/23 10/13/23 Prazosin [Minipress] 1 mg PO BID 10/11/23 10/13/23 Semaglutide [Wegovy] 2.4 mg SQ UD 10/11/23 10/13/23 Sertraline HCl 200 mg PO DAILY 10/11/23 10/13/23 Zolpidem Tartrate [Ambien] 10 mg PO HS PRN 10/11/23 10/13/23 buPROPion HCL [Bupropion Xl] 300 mg PO DAILY 10/11/23 10/13/23 clonazePAM [Klonopin] 1 mg PO BID 10/11/23 10/13/23 - Allergies Allergies/Adverse Reactions: Allergies Allergy/AdvReac Type Severity Reaction Status Date / Time Sulfa (Sulfonamide Allergy Anaphylaxis Verified 10/13/23 16:30 Antibiotics) Exam - Vital Signs Vital Signs: Vital Signs x48h Temp Pulse Pulse Resp BP BP Pulse Ox 10/13/23 18:09 139/103 H 10/13/23 18:05 36.7 C 84 16 149/102 H 96 10/13/23 16:25 37.2 C 87 20 153/102 H 98 - Physical Exam General Appearance: positive: No acute distress Respiratory: positive: Breath sounds nml Cardiovascular: positive: Regular rate & rhythm Conclusion and Plan - Lab Results Laboratory Results 10/13/23 16:48: Sodium 139, Potassium 3.6, Chloride 103, Carbon Dioxide 29, Anion Gap 7.0, BUN 17, Creatinine 0.8, Estimated GFR (MDRD) 79 L, Glucose 92, Calcium 10.4 H, Total Bilirubin 0.4, AST 23, ALT 19, Alkaline Phosphatase 66, Total Protein 7.7, Albumin 4.2, Globulin 3.5, Albumin/Globulin Ratio 1.2 10/13/23 16:48: WBC 10.4, RBC 4.22, Hgb 12.4, Hct 39.1, MCV 92.7, MCH 29.4, MCHC 31.7 L, RDW 14.5, Plt Count 301, MPV 9.7, Neut # (Auto) 7.4 H, Lymph # (Auto) 2.0, [place] # (Auto) 0.6, Eos # (Auto) 0.3, Baso # (Auto) 0.1, Absolute Nucleated RBC 0.00, Nucleated RBC % 0.0 10/13/23 16:44: Urine Color RED/BLOODY, Urine Clarity TURBID, Urine pH 7.0, Ur Specific [place] 1.025, Urine Protein 100 H, Urine Glucose (UA) NEGATIVE, Urine Ketones NEGATIVE, Urine Occult Blood LARGE H, Urine Nitrite NEGATIVE, Urine Bilirubin NEGATIVE, Urine Urobilinogen 0.2 (NORMAL), Ur Leukocyte Esterase MODERATE H, Urine RBC TNTC H, Urine WBC 0-3, Ur Squamous Epith Cells RARE Squamous, Urine Bacteria None Seen, Ur Microscopic Review INDICATED, Urine Culture Comments INDICATED - Diagnostic Imaging Results Diagnostic Imaging Results: positive: Read independently - Diagnosis Diagnosis: left flank pain. Stent colic - Consultation Note Consultation Note: 38yo f with left 5mm ureteral stone, stent in place, here for stent colic - Plan Plan: We will admit her to the hospital and keep her n.p.o. at midnight for procedure tomorrow. I will add her on for cystoscopy, left ureteroscopy, laser lithotripsy, stent exchange. The risk, benefits, alternatives were discussed with the patient. Specific risks of infection, bleeding, injury to adjacent structures, need for additional procedures, further stent colic were discussed. Overnight we will keep her pain under control which we will order most of her home medications holding her zolpidem and her bupropion. She has not started her Wegovy and so I do not think she is at any increased risk for perianesthesia risks from this. The patient states understanding and consents to the above plan
[2023-10-13] MEDS: SERTRALINE 50 MG TABLET PO SCH (20:42)
[2023-10-13] MEDS: HYDROmorphone 0.5 MG/0.5 ML SYRINGE IVP PRN (20:42)
[2023-10-13] MEDS: PHENAZOPYRIDINE 100 MG TABLET PO SCH (21:08)
[2023-10-13] MEDS: oxyCODONE 5 MG TABLET PO PRN (21:50)
[2023-10-13] MEDS: KETOROLAC 15 MG/ML VIAL IVP PRN (23:37)
[2023-10-14] MEDS: SODIUM CHLORIDE FLUSH 0.9% 10 ML SYRINGE IVP SCH (00:27)
[2023-10-14] MEDS: LEVOTHYROXINE 25 MCG TABLET PO SCH (06:46)
--- NOTE | 2023-10-14 08:30 | PROVIDER PROGRESS NOTE ---
Subjective - General Admit Date: 10/13/23 Procedure Date: 10/11/23 Post Op Days: 3 - Other Other Information/Narrative: NAEON. Pain controlled. Objective - Patient Data Reviewed Vital Signs: Yes Vital Signs: Vital Signs x48h Temp Pulse Resp BP Pulse Ox 10/14/23 07:52 36.5 C 67 18 139/100 H 97 10/14/23 04:29 36.6 C 61 18 132/93 H 98 Weight: Weight 10/12/23 10/13/23 10/14/23 23:59 23:59 23:59 Weight (kg) 95.5 kg Intake & Output: Intake and Output Totals x24h 10/12/23 10/13/23 10/14/23 23:59 23:59 23:59 Intake Total 1400 968.333 Output Total 550 550 Balance 850 418.333 - Lab Results Lab Results: 10/13/23 16:48 10/13/23 16:48 Other Lab Results: Lab Results x24hrs 10/13/23 10/13/23 10/13/23 Range/Units 16:48 16:48 16:44 WBC 10.4 (4.8-10.8) x10^3/uL RBC 4.22 (4.20-5.40) 10^6/uL Hgb 12.4 (12.0-16.0) g/dL Hct 39.1 (37.0-47.0) % MCV 92.7 (81.0-99.0) fL MCH 29.4 (27.0-31.0) pg MCHC 31.7 L (32.0-36.0) g/dL RDW 14.5 (12.0-15.0) % Plt Count 301 (130-450) 10^3/uL MPV 9.7 (7.9-10.8) fL Neut # (Auto) 7.4 H (1.5-6.6) 10^3/uL Lymph # (Auto) 2.0 (1.5-3.5) 10^3/uL [place] # (Auto) 0.6 (0.0-1.0) 10^3/uL Eos # (Auto) 0.3 (0.0-0.7) 10^3/uL Baso # (Auto) 0.1 (0.0-0.1) 10^3/uL Absolute Nucleated RBC 0.00 x10^3/uL Nucleated RBC % 0.0 /100WBC Sodium 139 (135-145) mmol/L Potassium 3.6 (3.5-4.5) mmol/L Chloride 103 (101-111) mmol/L Carbon Dioxide 29 (21-32) mmol/L Anion Gap 7.0 (6-13) BUN 17 (6-20) mg/dL Creatinine 0.8 (0.6-1.3) mg/dL Estimated GFR (MDRD) 79 L (>89) Glucose 92 (74-104) mg/dL Calcium 10.4 H (8.5-10.3) mg/dL Total Bilirubin 0.4 (0.2-1.0) mg/dL AST 23 (10-42) IU/L ALT 19 (10-60) IU/L Alkaline Phosphatase 66 (42-121) IU/L Total Protein 7.7 (6.4-8.9) g/dL Albumin 4.2 (3.2-5.5) g/dL Globulin 3.5 (2.1-4.2) g/dL Albumin/Globulin Ratio 1.2 (1.0-2.2) Urine Color RED/BLOODY Urine Clarity TURBID (CLEAR) Urine pH 7.0 (5.0-7.5) PH Ur Specific [place] 1.025 (1.002-1.030) Urine Protein 100 H (NEGATIVE) mg/dL Urine Glucose (UA) NEGATIVE (NEGATIVE) mg/dL Urine Ketones NEGATIVE (NEGATIVE) mg/dL Urine Occult Blood LARGE H (NEGATIVE) Urine Nitrite NEGATIVE (NEGATIVE) Urine Bilirubin NEGATIVE (NEGATIVE) Urine Urobilinogen 0.2 (NORMAL) (NORMAL) E.U./dL Ur Leukocyte Esterase MODERATE H (NEGATIVE) Urine RBC TNTC H (0-5) /HPF Urine WBC 0-3 (0-5) /HPF Ur Squamous Epith Cells RARE Squamous (<= Few) Urine Bacteria None Seen (None Seen) /HPF Ur Microscopic Review INDICATED Urine Culture Comments INDICATED - Current Medications Current Medications: Current Medications Generic Name Dose Route Start Last Admin Trade Name Freq PRN Reason Stop Dose Admin Hydromorphone HCl 0.5 mg 10/13/23 17:33 10/14/23 06:45 Hydromorphone 0.5 Mg/0.5 Ml Syringe IVP 0.5 mg Q2H PRN Administration Pain 8 to 10 Sodium Chloride 1,000 mls @ 100 mls/hr 10/13/23 18:00 10/14/23 04:06 Normal Saline 0.9% IV 100 mls/hr .Q10H PUNEET Administration Ketorolac Tromethamine 15 mg 10/13/23 17:36 10/14/23 06:45 Ketorolac 15 Mg/Ml Vial IVP 10/18/23 17:35 15 mg Q6HR PRN Administration Severe Pain (Level 7-10) Levothyroxine Sodium 50 mcg 10/14/23 07:00 10/14/23 06:46 Levothyroxine 25 Mcg Tablet PO 50 mcg QDAC PUNEET Administration Ondansetron HCl 4 mg 10/13/23 17:33 10/14/23 04:29 Ondansetron Odt 4 Mg Tablet TL 4 mg Q6HR PRN Administration Nausea / Vomiting Oxycodone HCl 5 mg 10/13/23 17:33 10/14/23 03:04 Oxycodone 5 Mg Tablet PO 5 mg Q4HR PRN Administration Pain 5 to 7 Phenazopyridine HCl 100 mg 10/13/23 22:00 10/14/23 06:46 Phenazopyridine 100 Mg Tablet PO 100 mg TID PUNEET Administration Sertraline HCl 200 mg 10/13/23 21:00 10/14/23 08:04 Sertraline 50 Mg Tablet PO 200 mg DAILY PUNEET Administration Sodium Chloride 10 ml 10/14/23 01:00 10/14/23 00:27 Sodium Chloride Flush 0.9% 10 Ml Syringe IVP Not Given 0100,0900,1700 [facility] - Physical Exam General Appearance: positive: No acute distress Respiratory: positive: Breath sounds nml Cardiovascular: positive: Regular rate & rhythm ABX Reporting Has patient been on IV antibiotics over the past 48 hours?: No Impression/Plan - Problem List Problem List: Cystoscopy, left ureteroscopy, laser lithotripsy, stent exchange. Added on for today. NPO until then
[2023-10-14] MEDS ORDERED: PROPOFOL 200 MG/20 ML VIAL IVP ONE (11:11)
[2023-10-14] MEDS ORDERED: DEXAMETHASONE 4 MG/ML VIAL ONE (11:11)
[2023-10-14] MEDS ORDERED: ONDANSETRON 4 MG/2 ML VIAL ONE (11:11)
[2023-10-14] MEDS ORDERED: MIDAZOLAM 2 MG/2 ML VIAL ONE (11:14)
[2023-10-14] MEDS ORDERED: fentaNYL 100 MCG/2 ML VIAL ONE ×2 (11:14→13:03)
[2023-10-14] MEDS ORDERED: DEXMEDETOMIDINE 200 MCG/2 ML VIAL ONE (11:19)
[2023-10-14] MEDS ORDERED: SODIUM CHLORIDE 0.9% 10 ML VIAL IVP ONE (11:20)
--- NOTE | 2023-10-14 11:25 | ANESTHESIA ---
Pre-Anesthesia VS, & Labs - Diagnosis Diagnosis left flank pain Stent colic left flank pain - Procedure laser lithotripsy Vital Signs: Temp Pulse Resp BP Pulse Ox O2 Flow Rate 36.5 C 67 18 139/100 H 97 10/14/23 07:52 10/14/23 07:52 10/14/23 07:52 10/14/23 07:52 10/14/23 07:52 Height: 5 ft 4 in Weight (kg): 95.5 kg Body Mass Index: 36.1 BMI Classification: Obese - Is Patient ?: No - Lab Results Current Lab Results: Laboratory Tests 10/13/23 16:48: Sodium 139, Potassium 3.6, Chloride 103, Carbon Dioxide 29, Anion Gap 7.0, BUN 17, Creatinine 0.8, Estimated GFR (MDRD) 79 L, Glucose 92, Calcium 10.4 H, Total Bilirubin 0.4, AST 23, ALT 19, Alkaline Phosphatase 66, Total Protein 7.7, Albumin 4.2, Globulin 3.5, Albumin/Globulin Ratio 1.2 10/13/23 16:48: WBC 10.4, RBC 4.22, Hgb 12.4, Hct 39.1, MCV 92.7, MCH 29.4, MCHC 31.7 L, RDW 14.5, Plt Count 301, MPV 9.7, Neut # (Auto) 7.4 H, Lymph # (Auto) 2.0, Mclennan # (Auto) 0.6, Eos # (Auto) 0.3, Baso # (Auto) 0.1, Absolute Nucleated RBC 0.00, Nucleated RBC % 0.0 Fish Bones: 10/13/23 16:48 10/13/23 16:48 Home Medications and Allergies Active Medications Acetaminophen (Acetaminophen 325 Mg Tablet) 650 mg PO Q4HR PRN PRN Reason: Pain 1 to 4, or Fever Hydromorphone HCl (Hydromorphone 0.5 Mg/0.5 Ml Syringe) 0.5 mg IVP Q2H PRN PRN Reason: Pain 8 to 10 Last Admin: 10/14/23 11:12 Dose: 0.5 mg Sodium Chloride (Normal Saline 0.9%) 1,000 mls @ 100 mls/hr IV .Q10H PUNEET Last Admin: 10/14/23 04:06 Dose: 100 mls/hr Ketorolac Tromethamine (Ketorolac 15 Mg/Ml Vial) 15 mg IVP Q6HR PRN PRN Reason: Severe Pain (Level 7-10) Stop: 10/18/23 17:35 Last Admin: 10/14/23 06:45 Dose: 15 mg Levothyroxine Sodium (Levothyroxine 25 Mcg Tablet) 50 mcg PO QDAC [facility] Last Admin: 10/14/23 06:46 Dose: 50 mcg Ondansetron HCl (Ondansetron Odt 4 Mg Tablet) 4 mg TL Q6HR PRN PRN Reason: Nausea / Vomiting Last Admin: 10/14/23 04:29 Dose: 4 mg Oxycodone HCl (Oxycodone 5 Mg Tablet) 5 mg PO Q4HR PRN PRN Reason: Pain 5 to 7 Last Admin: 10/14/23 03:04 Dose: 5 mg Phenazopyridine HCl (Phenazopyridine 100 Mg Tablet) 100 mg PO TID [facility] Last Admin: 10/14/23 06:46 Dose: 100 mg Sertraline HCl (Sertraline 50 Mg Tablet) 200 mg PO DAILY [facility] Last Admin: 10/14/23 08:04 Dose: 200 mg Sodium Chloride (Sodium Chloride Flush 0.9% 10 Ml Syringe) 10 ml IVP PRN PRN PRN Reason: NEEDED PER PROVIDER ORDERS Sodium Chloride (Sodium Chloride Flush 0.9% 10 Ml Syringe) 10 ml IVP 0100,0900,1700 [facility] Last Admin: 10/14/23 08:39 Dose: Not Given Levothyroxine Sodium [Synthroid] 50 mcg PO DAILY 10/11/23 Losartan Potassium [Cozaar] 100 mg PO DAILY 10/11/23 Prazosin [Minipress] 1 mg PO BID 10/11/23 Semaglutide [Wegovy] 2.4 mg SQ UD 10/11/23 Sertraline HCl 200 mg PO DAILY 10/11/23 Zolpidem Tartrate [Ambien] 10 mg PO HS PRN 10/11/23 buPROPion HCL [Bupropion Xl] 300 mg PO DAILY 10/11/23 clonazePAM [Klonopin] 1 mg PO BID 10/11/23 Allergies/Adverse Reactions: Allergies Allergy/AdvReac Type Severity Reaction Status Date / Time Sulfa (Sulfonamide Allergy Anaphylaxis Verified 10/13/23 16:30 Antibiotics) Anes History & Medical History - Medical History Cardiovascular: reports: Hypertension Pulmonary: reports: Sleep apnea Gastrointestinal: reports: None Urinary: reports: Kidney stones Neuro: reports: None Musculoskeletal: reports: None Endocrine/Autoimmune: reports: HyPOthyroidism Blood Disorders: reports: None Skin: reports: None Smoking Status: Former smoker - Surgical History General: reports: Appendectomy Urologic: reports: Kidney stents, Ureterolithotomy (stones) Exam General: Alert, Oriented x3, Cooperative Dental: WNL Mallampati classification: I Thyromental Distance: 4-6 cm Plan Anesthesia Type: General Consent for Procedure(s) Verified and Reviewed: Yes Code Status: Attempt Resuscitation ASA classification: 2-Mild systemic disease Is this case an emergency?: No
[2023-10-14] MEDS ORDERED: ONDANSETRON 4 MG/2 ML VIAL IVP PRN (11:26)
[2023-10-14] MEDS ORDERED: ePHEDrine 50 MG/ML VIAL IVP PRN (11:26)
[2023-10-14] MEDS ORDERED: NALOXONE 0.4 MG/ML VIAL IVP PRN (11:26)
[2023-10-14] MEDS ORDERED: ATROPINE ABBOJECT 1 MG/10 ML SYRINGE IVP PRN (11:26)
[2023-10-14] MEDS ORDERED: MORPHINE 2 MG/ML CARPUJECT IVP PRN (11:26)
[2023-10-14] MEDS ORDERED: iohexoL-240 10 ML VIAL IVP ONE (11:43)
[2023-10-14] MEDS ORDERED: PROPOFOL 500 MG/50 ML 500 MG/50 ML VIAL ONE (11:47)
[2023-10-14] MEDS ORDERED: LIDOCAINE 2% URO-JET 5 ML SYRINGE UR ONE (11:49)
[2023-10-14] MEDS ORDERED: LACTATED RINGERS 1,000 ML IV SCH (12:00)
[2023-10-14] MEDS ORDERED: ceFAZolin 1 GM VIAL ONE (12:10)
[2023-10-14] MEDS: LIDOCAINE 2% URO-JET 5 ML SYRINGE UR ONE (12:33)
[2023-10-14] MEDS: LACTATED RINGERS 900 ML IV ONE (12:42)
--- NOTE | 2023-10-14 12:52 | OPERATIVE REPORT ---
Operative Report - General Admit Date: 10/13/23 Procedure Date: 10/14/23 Planned Procedure: Cystoscopy, left ureteroscopy, laser lithotripsy, stent exchange Pre-Op Diagnosis: left ureteral stone Procedure Performed: Cystoscopy, left ureteroscopy, laser lithotripsy, stent exchange Post Op Diagnosis: left renal stone - Procedure Note Primary Surgeon: Wali Anesthesia Provider: KARSON Linares Anesthesia Technique: General LMA Pathology: none Estimated Blood Loss (mL): 0 Findings: left 4mm UPJ stone Complications: none - Other Other Information/Narrative: After informed consent was obtained the patient was brought to the OR and laid in the supine position. The patient was anesthetized per anesthesia protocols and prepped and draped in usual sterile fashion in the dorsolithotomy position a formal timeout was performed reconfirming the patient, procedure and laterality. 22 Nigerian cystoscope was advanced easily into urinary bladder. Bladder was inspected and full and there was a stent emanating from the left ureteral orifice. A sensor wire was placed next to this up into the kidney. The old stent was removed. A flexible ureteroscope was advanced over the wire up into the kidney where we could see a radiopaque 4 mm stone at UPJ. There was some adherent clot around it as well. Using a 200 m laser fiber at a power of 0.8 and a rate of 8 we dusted the stone into small dust. No stone of significant size remained. The ureter was cleared under direct visualization. Over a sensor wire and a new 6 Nigerian 26 cm stent was placed with good curling noted in the kidney and good curling noted in the bladder. The bladder was emptied and Uro-Jet was placed. The stent was left on a string and taped using a Tegaderm to her suprapubic area She will remove the stent in 3-5 days time This concluded procedure and the patient tolerated procedure well. She will follow-up in 3 months time
--- NOTE | 2023-10-14 12:58 | Discharge Plan ---
Discharge Plan Problem Reviewed?: Yes Disposition: Home, Self Care Condition: Good Diet: Regular Activity Restrictions: Additional Comments (as instructed) Shower Restrictions: No Driving Restrictions: No Instruction Topics: Stents Ureteral Additional Instructions or Follow Up instructions: Please remove your ureteral stent as instructed on Wednesday, October 17 in the morning by pulling with strong consistent pressure. The stent is about 12 inches long and is white. It is best to do this in the shower as urine and some blood will be seen No Smoking: If you smoke, Please STOP! Call for help. Follow-up with: Shashank Keyes MD [Provider Admit Priv/Credential] -
--- NOTE | 2023-10-14 13:03 | DISCHARGE SUMMARY ---
"Discharge Summary Admit Date: 10/13/23 Discharge Date: 10/14/23 Discharging Provider: Wali Condition at Discharge: Good Discharge Disposition: 01 Home, Self Care - DIAGNOSES Admission Diagnoses: left Ureteral stone Stent colic Discharge Diagnoses with Status of Each Condition: Ureteral stone- resolved Stent colic- resolving - HPI History of Present Illness: Isela had a left ureteral stent placed on Wednesday, October 10 for a 5 mm proximal left ureteral stone. She returned to the hospital on October 12 with stent colic and intractable pain. - CONSULTS | PROCEDURES Consultations: none Procedures: Cystoscopy, left ureteroscopy, laser lithotripsy, stent exchange - HOSPITAL COURSE Hospital Course: She was admitted to the hospital and her pain was very easily controlled. The next morning she was made n.p.o. and she was taken to the OR around noon for her procedure. For details please refer to the operative note for. Postoperatively she had a stent left in place on a string. She will remove the stent in 4 days She will follow-up with urology in 3 months - ALLERGIES Allergies/Adverse Reactions: Allergies Allergy/AdvReac Type Severity Reaction Status Date / Time Sulfa (Sulfonamide Allergy Anaphylaxis Verified 10/13/23 16:30 Antibiotics) - MEDICATIONS Home Medications: Ambulatory Orders Medication Instructions Recorded Confirmed Meloxicam [Mobic] 7.5 mg PO BID 10 Days #20 tablet 10/03/23 10/13/23 Levothyroxine Sodium [Synthroid] 50 mcg PO DAILY 10/11/23 10/13/23 Losartan Potassium [Cozaar] 100 mg PO DAILY 10/11/23 10/13/23 Prazosin [Minipress] 1 mg PO BID 10/11/23 10/13/23 Semaglutide [Wegovy] 2.4 mg SQ UD 10/11/23 10/13/23 Sertraline HCl 200 mg PO DAILY 10/11/23 10/13/23 Zolpidem Tartrate [Ambien] 10 mg PO HS PRN 10/11/23 10/13/23 buPROPion HCL [Bupropion Xl] 300 mg PO DAILY 10/11/23 10/13/23 clonazePAM [Klonopin] 1 mg PO BID 10/11/23 10/13/23 - PHYSICAL EXAM AT DISCHARGE General Appearance: positive: No acute distress - LABS Result Diagrams: 10/13/23 16:48 10/13/23 16:48 - DIAGNOSTIC IMAGING Diagnostic Imaging Results: Read independently - SEPSIS Current Stage of Sepsis: Ruled out - QUALITY (Female Hip Fx Only) Was patient sent home on osteoporosis medication?: No - FOLLOW UP Follow Up: Dr Keyes in 3 months - TIME SPENT Time Spent in Discharge (Minutes): 10"
[2023-10-14] MEDS: fentaNYL 100 MCG/2 ML VIAL IVP PRN (13:05)
[2023-10-14] MEDS ORDERED: HYDROmorphone 1 MG/ML CARPUJECT ONE (13:08)
[2023-10-14] MEDS: HYDROmorphone 0.5 MG/0.5 ML SYRINGE IVP PRN (13:15)
--- NOTE | 2023-10-14 14:17 | ANESTHESIA POST OP EVALUATION ---
Anesthesia Post Eval - Post Anesthesia Eval Vitals: Last Vital Signs Temp 36.8 C 10/14/23 13:33 Pulse 81 10/14/23 13:33 Resp 18 10/14/23 13:33 BP 143/107 H 10/14/23 13:33 Pulse Ox 95 10/14/23 13:33 O2 Flow Rate CV Function Including HR & BP: Stable Pain Control: Satisfactory Nausea & Vomiting: Negative Mental Status: Baseline Respiratory Status: Airway Patent Hydration Status: Satisfactory Anesthesia Complications: None
[2023-10-14] MEDS: ACETAMINOPHEN 325 MG TABLET PO PRN (14:53)
[2023-10-14] MEDS: SODIUM CHLORIDE FLUSH 0.9% 10 ML SYRINGE IVP PRN (15:43)
[2023-10-14 17:30] VITALS: BP 131/83; O2SAT 96
--- NOTE | 2023-10-14 20:34 | XRAY Report ---
PROCEDURE: OR C-Arm Procedure INDICATIONS: STENT PLACEMENT FLUORO TIME: 000.1 TECHNIQUE: 3 spot fluoroscopic intraoperative images of the left abdomen. COMPARISON: None. FINDINGS: Intraoperative fluoroscopic images show left-sided ureteral stent in appropriate position. IMPRESSION: Fluoroscopy guidance was provided intraoperatively for left-sided ureteral stent placement. Reviewed by: Lester Ellington MD on 10/14/2023 8:33 PM PDT Approved by: Lester Ellington MD on 10/14/2023 8:33 PM PDT Station ID: [id number]
[2023-10-14] MEDS: clonazePAM 0.5 MG TABLET PO ONE (20:38)
[2023-10-14] MEDS: oxyCODONE 5 MG TABLET PO PRN (21:05)
[2023-10-14] MEDS: IBUPROFEN 600 MG TABLET PO PRN (21:16)
[2023-10-14] MEDS ORDERED: DOCUSATE SODIUM 100 MG CAPSULE PO ONE (21:56)
[2023-10-14] MEDS ORDERED: GLYCERIN ADULT SUPP PR PRN (21:56)
[2023-10-14] MEDS ORDERED: SENNA 8.6 MG TABLET PO PRN (21:57)
[2023-10-14] MEDS ORDERED: polyethylene glycoL 3350 17 GM PACKET PO ONE (22:00)
--- NOTE | 2023-10-15 07:53 | Discharge Plan ---
Discharge Plan Problem Reviewed?: Yes Disposition: Home, Self Care Condition: Good Diet: Regular Activity Restrictions: No Restrictions Shower Restrictions: No Driving Restrictions: No Instruction Topics: Kidney Stones Additional Instructions or Follow Up instructions: You will be contacted for followup in 3 months It is normal to have blood in your urine and occasional flank pains for the next few days, along with increased urgency and frequency of urination for the next few days No Smoking: If you smoke, Please STOP! Call for help. Follow-up with: Shashank Keyes MD [Provider Admit Priv/Credential] -
== END 2023-10-14 22:23 | disposition home or self-care (01) ==
LOC: ED 16:12 → MS2 17:34
PROVIDERS: ADMIT Urology; ATTEND Urology
DX: T83.84XA Pain due to genitourinary prosthetic devices, implants and grafts, initial encounter (principal); Y83.8 Other surgical procedures as the cause of abnormal reaction of the patient, or of later complication, without mention of misadventure at the time of the procedure; N20.1 Calculus of ureter; I10 Essential (primary) hypertension; G47.30 Sleep apnea, unspecified; E03.9 Hypothyroidism, unspecified; F32.A Depression, unspecified; F41.9 Anxiety disorder, unspecified; E66.9 Obesity, unspecified; Z68.36 Body mass index [BMI] 36.0-36.9, adult; Z79.85 Long-term (current) use of injectable non-insulin antidiabetic drugs; Z79.890 Hormone replacement therapy; Z79.899 Other long term (current) drug therapy; Z88.2 Allergy status to sulfonamides
CPT/HCPCS: 36415; 52356; 74018; 80053; 81001; 85025; 87086; 96374; 96375; 96376; 99285; A9270; C2617; G0378; J1170; J7120; Q0162; 81003; Q9966

== ENCOUNTER 2023-10-15 08:00 | Outpatient (CLI) | payer OTHER | END 2023-10-15 23:59 | disposition home or self-care (01) | LOC: LAB.S 08:00 | PROVIDERS: ATTEND Physician Assistant Medical | DX: N39.0 Urinary tract infection, site not specified (principal) | CPT/HCPCS: 87086 ==